=== PATIENT | male | born 1990 | race Caucasian/White ===

== ENCOUNTER 2020-11-26 20:07 | Emergency (ER) | payer BC, OTHER ==
[2020-11-26] MEDS ORDERED: fentaNYL INJ 100 MCG/2 ML AMP IVP ONE (20:30)
[2020-11-26] MEDS ORDERED: ONDANSETRON 4 MG/2 ML (SDV) Z0FRAN IVP ONE (20:30)
[2020-11-26 20:31] LABS: HEMATOCRIT 50 % (40-54); HEMOGLOBIN 17.3 G/DL (13.3-17.7); LYMPHOCYTES % (AUTO) 22 % (12-44); MEAN CORPUSCULAR HEMOGLOBIN 30 PG (25-34); MEAN CORPUSCULAR HGB CONC 35 G/DL (32-36); MEAN CORPUSCULAR VOLUME 86 FL (80-99); NEUTROPHILS % (AUTO) 70 % (42-75); PLATELET COUNT 337 10^3/uL (130-400); WHITE BLOOD COUNT 17.9 10^3/uL (4.3-11.0)
[2020-11-26 20:32] LABS: BASOPHILS # (AUTO) 0.1 10^3/uL (0.0-0.1); BASOPHILS % (AUTO) 0 % (0-10); EOSINOPHILS % (AUTO) 0 % (0-10); LYMPHOCYTES # (AUTO) 3.9 X 10^3 (1.0-4.0); MONOCYTES # (AUTO) 1.3 X 10^3 (0.0-1.0); MONOCYTES % (AUTO) 7 % (0-12); NEUTROPHILS # (AUTO) 12.6 X 10^3 (1.8-7.8)
[2020-11-26 20:47] LABS: POTASSIUM 4.3 MMOL/L (3.6-5.0)
[2020-11-26 20:48] LABS: ALBUMIN 4.5 GM/DL (3.2-4.5); BILIRUBIN,TOTAL 0.9 MG/DL (0.1-1.0); CALCIUM 9.6 MG/DL (8.5-10.1); CREATININE SERUM 0.89 MG/DL (0.60-1.30); TOTAL PROTEIN 7.9 GM/DL (6.4-8.2)
[2020-11-26] MEDS ORDERED: IOHEXOL 350 MG/ML 100 ML (OMNIPAQUE 350) VIAL IV ONE (21:00)
[2020-11-26] MEDS ORDERED: NS 100 ML (IVPB) BAG IV ONE (21:00)
[2020-11-26] MEDS ORDERED: HOLD METFORMIN - RECEIVED CONTRAST 20 ML VIAL IV SCH (21:00)
--- NOTE | 2020-11-26 21:12 | ED General ---
General Chief Complaint: Abdominal/GI Problems Stated Complaint: ABD PAIN Nursing Triage Note: Pt complaining of epigastric pain that started a couple of hours ago after eating pizza. Source of Information: Patient History of Present Illness Date Seen by Provider: Nov 26, 2020 Time Seen by Provider: 20:00 Initial Comments Patient is a 30-year-old male who presents with epigastric pain starting 2 hours prior to ED arrival after eating. Pain is described as sharp moderate to severe and radiates to his left upper and right upper quadrants. Is associate with nausea and sweats. Pain waxes and wanes currently moderate. Is worse with palpation and not relieved with position change to rest. Patient has had simil ar episodes in the past few months. He had attempted to have a bowel movement had 1 episode of diarrhea. No fevers or chills. No cough, sore throat, flank pain. No other acute symptoms or complaints. No prior abdominal surgeries. Timing/Duration: 1-3 Hours Severity: Moderate Modifying Factors: improves with Other Associated Systoms: Other Allergies and Home Medications Allergies Coded Allergies: No Known Drug Allergies (Unverified , 11/26/20) Patient Home Medication List Home Medication List Reviewed: Yes Review of Systems Review of Systems Constitutional: see HPI EENTM: see HPI Respiratory: see HPI Cardiovascular: see HPI Gastrointestinal: see HPI Genitourinary: see HPI Musculoskeletal: see HPI Skin: see HPI Psychiatric/Neurological: See HPI Hematologic/Lymphatic: See HPI Immunological/Allergic: see HPI Past [id number] Hx Patient Social History Tobacco Use?: Yes Use of E-Cig and/or Vaping dev: No Substance use?: No Alcohol Use?: No Pt feels they are or have been: No Physical Exam Vital Signs Vital Signs - First Documented 11/26/20 20:12 Temp 36.4 Pulse 98 Resp 18 B/P (MAP) 194/103 (133) Pulse Ox 100 O2 Delivery Room Air Capillary Refill : Less Than 3 Seconds Height, Weight, BMI Height: '" Weight: lbs. oz. kg; BMI Method: General Appearance: WD/WN, Anxious, Mild Distress Eyes: Bilateral Eye Normal Inspection, Bilateral Eye PERRL, Bilateral Eye EOMI HEENT: Normal ENT Inspection Neck: Non Tender, Supple Respiratory: Lungs Clear Cardiovascular: Regular Rate, Rhythm, No Edema Gastrointestinal: Soft, Tenderness Back: Normal Inspection, No CVA Tenderness Neurologic/Psychiatric: Alert, Oriented x3 Progress/Results/Core Measures Suspected Sepsis SIRS Temperature: Pulse: 98 Respiratory Rate: 18 Laboratory Tests 11/26/20 20:17: White Blood Count 17.9H Blood Pressure 194 /103 Mean: 133 Laboratory Tests 11/26/20 20:17: Creatinine 0.89, Platelet Count 337, Total Bilirubin 0.9 Results/Orders Lab Results Laboratory Tests Test 11/26/20 20:17 Range/Units White Blood Count 17.9 H 4.3-11.0 10^3/uL Red Blood Count 5.82 4.35-5.85 10^6/uL Hemoglobin 17.3 13.3-17.7 G/DL Hematocrit 50 40-54 % Mean Corpuscular Volume 86 80-99 FL Mean Corpuscular Hemoglobin 30 25-34 PG Mean Corpuscular Hemoglobin Concent 35 32-36 G/DL Red Cell Distribution Width 12.4 10.0-14.5 % Platelet Count 337 130-400 10^3/uL Mean Platelet Volume 10.0 7.4-10.4 FL Immature Granulocyte % (Auto) 1 % Neutrophils (%) (Auto) 70 42-75 % Lymphocytes (%) (Auto) 22 12-44 % Monocytes (%) (Auto) 7 0-12 % Eosinophils (%) (Auto) 0 0-10 % Basophils (%) (Auto) 0 0-10 % Neutrophils # (Auto) 12.6 H 1.8-7.8 X 10^3 Lymphocytes # (Auto) 3.9 1.0-4.0 X 10^3 Monocytes # (Auto) 1.3 H 0.0-1.0 X 10^3 Eosinophils # (Auto) 0.0 0.0-0.3 10^3/uL Basophils # (Auto) 0.1 0.0-0.1 10^3/uL Immature Granulocyte # (Auto) 0.1 0.0-0.1 10^3/uL Neutrophils % (Manual) 70 % Lymphocytes % (Manual) 21 % Monocytes % (Manual) 7 % Eosinophils % (Manual) 1 % Band Neutrophils 1 % Blood Morphology Comment NORMAL Sodium Level 141 135-145 MMOL/L Potassium Level 4.3 3.6-5.0 MMOL/L Chloride Level 104 98-107 MMOL/L Carbon Dioxide Level 25 21-32 MMOL/L Anion Gap 12 5-14 MMOL/L Blood Urea Nitrogen 18 7-18 MG/DL Creatinine 0.89 0.60-1.30 MG/DL Estimat Glomerular Filtration Rate 102 BUN/Creatinine Ratio 20 Glucose Level 108 H 70-105 MG/DL Calcium Level 9.6 8.5-10.1 MG/DL Corrected Calcium 9.2 8.5-10.1 MG/DL Total Bilirubin 0.9 0.1-1.0 MG/DL Aspartate Amino Transf (AST/SGOT) 57 H 5-34 U/L Alanine Aminotransferase (ALT/SGPT) 36 0-55 U/L Alkaline Phosphatase 74 40-136 U/L Total Protein 7.9 6.4-8.2 GM/DL Albumin 4.5 3.2-4.5 GM/DL Lipase 81 H 8-78 U/L My Orders Orders - CRYSTAL HAUSER DO Fentanyl Inj (Sublimaze Injection) (11/26/20 20:30) Ondansetron Injection (Zofran Injectio (11/26/20 20:30) Cbc With Automated Diff (11/26/20 20:19) Comprehensive Metabolic Panel (11/26/20 20:19) Lipase (11/26/20 20:19) Ed Iv/Invasive Line Start (11/26/20 20:19) Manual Differential (11/26/20 20:17) Ct Abdomen/Pelvis W (11/26/20 20:53) Iohexol Injection (Omnipaque 350 Mg/Ml 1 (11/26/20 21:00) Received Contrast (Hold Metformin- Contr (11/26/20 21:00) Ns (Ivpb) (Sodium Chloride 0.9% Ivpb Bag (11/26/20 21:00) Medications Given in ED Current Medications Medications Dose Ordered Sig/Fran Route Start Time Stop Time Status Last Admin Dose Admin Fentanyl Citrate 50 mcg ONCE ONCE IVP 11/26/20 20:30 11/26/20 20:31 DC 11/26/20 20:24 50 MCG Iohexol 100 ml ONCE ONCE IV 11/26/20 21:00 11/26/20 21:24 DC 11/26/20 21:18 100 ML Ondansetron HCl 4 mg ONCE ONCE IVP 11/26/20 20:30 11/26/20 20:31 DC 11/26/20 20:24 4 MG Sodium Chloride 100 ml ONCE ONCE IV 11/26/20 21:00 11/26/20 21:24 DC 11/26/20 21:18 80 ML Vital Signs/I&O 11/26/20 20:12 Temp 36.4 Pulse 98 Resp 18 B/P (MAP) 194/103 (133) Pulse Ox 100 O2 Delivery Room Air Capillary Refill : Less Than 3 Seconds Blood Pressure Mean: 133 Departure Communication (Admissions) CT abdomen pelvis: No acute findings per radiology report Abdominal pain immediately worse after eating and drinking. Denies alcohol consumption this evening. Abdomen soft, nonsurgical. Elevated white blood cell count lipase. Not no acute findings on CT. IV pain medication Maalox given with improvement of symptoms. Recommendations supportive care watchful waiting and PCP follow-up. Impression Primary Impression: Abdominal pain Additional Impression: Nausea and vomiting Disposition: HOME, SELF-CARE Condition: Stable Departure-Patient Inst. Decision time for Depature: 21:34 Referrals: NO,LOCAL PHYSICIAN (PCP/Family) Primary Care Physician Patient Instructions: Severe Abdominal Pain, Adult (DC), Nausea and Vomiting, Adult ED Add. Discharge Instructions: You were evaluated in the emergency department for upper abdominal pain. Lab and imaging studies were performed and are nondiagnostic. The exact cause of your symptoms has not been determined. Please avoid spicy foods, caffeine and alcohol. Take newly prescribed medication as directed and follow-up with your PCP in 3 to 5 days for reevaluation. Return to the ED if new or worsening symptoms. All discharge instructions reviewed with patient and/or family. Voiced understanding. Scripts Ondansetron (Ondansetron Odt) 4 Mg Tab.rapdis 4 MG PO Q6H, #10 TAB Prov: CRYSTAL HAUSER DO 11/26/20 Famotidine (Pepcid) 20 Mg Tablet 20 MG PO BID, #60 TAB Prov: CRYSTAL HAUSER DO 11/26/20 CRYSTAL HAUSER DO Nov 26, 2020 21:12
[2020-11-26 21:20] LABS: BAND NEUTROPHILS 1 %; EOSINOPHILS % (MANUAL) 1 %; LYMPHOCYTES % (MANUAL) 21 %; MONOCYTES % (MANUAL) 7 %; NEUTROPHILS % (MANUAL) 70 %; RBC MORPH NORMAL
--- NOTE | 2020-11-26 21:27 | Diagnostic Imaging Report ---
PROCEDURE: CT abdomen and pelvis with contrast. TECHNIQUE: Multiple contiguous axial images were obtained through the abdomen and pelvis after administration of intravenous contrast. Auto Exposure Controls were utilized during the CT exam to meet ALARA standards for radiation dose reduction. All CT scans use one or more of the following dose optimizing techniques: automated exposure control, MA and/or KvP adjustment based on patient size and exam type or iterative reconstruction. INDICATION: Right upper quadrant pain x4 hours. The lung bases are clear. The liver appears normal. The gallbladder appears normal. Portal vein is patent. Pancreas is normal. Spleen is not enlarged. Kidneys and adrenals appear normal. The appendix is normal. Small bowel is not dilated. There is some diverticular disease in the sigmoid colon but no evidence of diverticulitis. There is no intraperitoneal free air or free fluid. IMPRESSION: No acute abnormality is seen in the abdomen or pelvis. Dictated by: Dictated on workstation # [id number]
[2020-11-26] MEDS ORDERED: FAMO-119 PO (21:38)
[2020-11-26] MEDS ORDERED: ONDA4TAB11 PO (21:38)
[2020-11-26 21:45] VITALS: BP 147/87
[2020-11-26] MEDS ORDERED: LIDOCAINE 2% VISCOUS 15 ML UDC PO ONE (21:45)
[2020-11-26] MEDS ORDERED: ANTACID SUSP 30 ML UDC (MYLANTA) PO ONE (21:45)
== END 2020-11-26 21:46 | disposition home or self-care (01) ==
LOC: ER FS 20:09
DX: R10.13 Epigastric pain (principal); R11.2 Nausea with vomiting, unspecified; D72.829 Elevated white blood cell count, unspecified
CPT/HCPCS: 36415; 74177; 80053; 83690; 85007; 85027